=== PATIENT | male | born 1985 | race Caucasian/White ===

== ENCOUNTER 2025-03-29 12:16 | Emergency (ER) | payer OTHER ==
[~2025-03-29] VITALS: Ht 182.9 cm; Wt 94.0 kg
[2025-03-29 13:47] VITALS: BP 131/82
== END 2025-03-29 13:49 | disposition home or self-care (01) ==
LOC: ED 12:16
DX: S43.402A Unspecified sprain of left shoulder joint, initial encounter (principal); I10 Essential (primary) hypertension; Z88.5 Allergy status to narcotic agent; W01.0XXA Fall on same level from slipping, tripping and stumbling without subsequent striking against object, initial encounter
CPT/HCPCS: 73030; 99283